=== PATIENT | female | born 1990 ===

== ENCOUNTER 2018-03-07 21:46 | Emergency (ER) | payer SELFPAY ==
[2018-03-07 22:25] VITALS: BMI 27.4
[2018-03-07 22:29] VITALS: RESP 18
[2018-03-07] MEDS ORDERED: Sodium Chloride 0.9% 1,000 ML IV STA ×2 (22:37→22:40)
--- NOTE | 2018-03-07 22:37 | ED PDOC ---
Arrival/HPI - General Chief Complaint: Female Genitourinary Time Seen by Provider: 03/07/18 22:30 Historian: Patient - History of Present Illness Narrative History of Present Illness (Text): 03/07/18 22:37 28 year old female, with no significant past medical history, presents to the emergency department complaining of fever and abdominal cramps. Patient states she was here yesterday and was diagnosed with a UTI. The pain did not go away with the 2 doses of Cipro. She states every time she takes medication it makes her feel sick and vomits it out. Patient denies any chills, chest pain, shortness of breath, diarrhea, urinary symptoms, back pain, neck pain, headache , dizziness, or any other complaints. Symptom Course: Unchanged Activities at Onset: Light Context: Home Past Medical History - Provider Review Nursing Documentation Reviewed: Yes - Renal Other/Comment: UTI - Psychiatric Hx Substance Use: No - Anesthesia Hx Anesthesia: No Family/Social History - Physician Review Nursing Documentation Reviewed: Yes Family/Social History: No Known Family HX Smoking Status: Never Smoked Hx Alcohol Use: No Hx Substance Use: No Allergies/Home Meds Allergies/Adverse Reactions: Allergies No Known Allergies Allergy (Verified 03/07/18 22:25) Home Medications: Home Meds Medication Instructions Recorded Confirmed No Known Home Med 03/07/18 03/07/18 Review of Systems - Physician Review All systems were reviewed & negative as marked: Yes - Review of Systems Constitutional: Fevers Respiratory: absent: SOB Cardiovascular: absent: Chest Pain Gastrointestinal: Abdominal Pain (cramping), Vomiting. absent: Diarrhea Genitourinary Female: absent: Dysuria, Frequency, Hematuria Musculoskeletal: absent: Back Pain, Neck Pain Physical Exam Vital Signs Reviewed: Yes Vital Signs Temp Pulse Resp BP Pulse Ox 03/07/18 22:26 98 F 94 H 18 127/77 100 Temperature: Afebrile Blood Pressure: Normal Pulse: Regular Respiratory Rate: Normal Appearance: Positive for: Well-Appearing, Non-Toxic, Comfortable Pain Distress: None Mental Status: Positive for: Alert and Oriented X 3 - Systems Exam Head: Present: Atraumatic, Normocephalic Pupils: Present: PERRL Extroacular Muscles: Present: EOMI Conjunctiva: Present: Normal Mouth: Present: Moist Mucous Membranes Neck: Present: Normal Range of Motion Respiratory/Chest: Present: Clear to Auscultation, Good Air Exchange. No: Respiratory Distress, Accessory Muscle Use Cardiovascular: Present: Regular Rate and Rhythm, Normal S1, S2. No: Murmurs Abdomen: No: Tenderness, Distention, Peritoneal Signs Back: Present: Normal Inspection Upper Extremity: Present: Normal Inspection. No: Cyanosis, Edema Lower Extremity: Present: Normal Inspection. No: Edema Neurological: Present: GCS=15, CN II-XII Intact, Speech Normal Skin: Present: Warm, Dry, Normal Color. No: Rashes Psychiatric: Present: Alert, Oriented x 3, Normal Insight, Normal Concentration Medical Decision Making ED Course and Treatment: 03/07/18 22:35 Impression: 28 year old female presents complaining of unresolved abdominal cramping and fever. Patient was diagnosed with UTI yesterday. Plan: -- Labs -- Motrin, IV Fluids, Tylenol -- Urine Culture -- Urine Test -- Urinalysis -- Reassess and disposition Progress Notes: 03/07/18 22:55 Patient states she was seen in [facility] last night. Asked patient if it is possible to retrieve paper work from [place] to review. Patient states she cannot and wants to leave because she can just take Tylenol at home. She will not sign the paper. Leaving Against Medical Advice (AMA): The patient is choosing to leave against medical advice. I have personally explained to the patient that choosing to do so may result in permanent bodily harm or . I have discussed at great length that without further evaluation and monitoring there may be unforeseen circumstances and/or deterioration causing permanent bodily harm or as a result of their choice. The patient is alert, oriented, and shows the mental capacity to make clear decisions regarding the patients health care at this time. The patient continues to wish to leave against medical advice. In light of the patients decision to leave against medical advice, follow-up has been arranged and the patient is aware of the importance to following up as instructed. The patient has been advised that they should return to the emergency room immediately if they change their mind at any time, or if their condition begins to change or worsen in any way. 03/07/18 23:06 Spoke with patient. Patient states I said all they needed in the Emergency room is Tylenol and is leaving because they can take it at home. I explained to them that that was not what I said. I explained they can take Tylenol for the fever and Motrin for the pain and explained that I did not say that is all they needed. I offered treatment and patient denies wanting. Patient will not sign against medical advice form and they are angry with me. - Lab Interpretations Lab Results: 03/07/18 22:45 03/07/18 22:45 Lab Results 03/07/18 22:45: Sodium 141, Potassium 3.9, Chloride 103, Carbon Dioxide 21, Anion Gap 20, BUN 6 L, Creatinine 0.6 L, Est GFR ( Amer) > 60, Est GFR ( Non-Af Amer) > 60, Random Glucose 114 H, Calcium 9.1, Total Bilirubin 0.7, AST 22, ALT 35, Alkaline Phosphatase 80, Total Protein 8.5 H, Albumin 4.4, Globulin 4.1, Albumin/Globulin Ratio 1.1 03/07/18 22:45: Urine Color Yellow, Urine Appearance Cloudy, Urine pH 7.5, Ur Specific [place] 1.025, Urine Protein 100 H, Urine Glucose (UA) Negative, Urine Ketones Trace H, Urine Blood Moderate H, Urine Nitrate Negative, Urine Bilirubin Negative, Urine Urobilinogen 1.0 H, Ur Leukocyte Esterase Large H, Urine RBC 2 - 5, Urine WBC 20 - 25, Ur Epithelial Cells 1 - 3, Urine Bacteria Mod 03/07/18 22:45: WBC 14.6 H, RBC 4.49, Hgb 13.6, Hct 38.9, MCV 86.6, MCH 30.3, MCHC 35.0, RDW 12.3, Plt Count 248, MPV 11.7 H, Gran % 78.7 H, Lymph % (Auto) 9.8 L, [place] % (Auto) 11.3 H, Eos % (Auto) 0.1 L, Baso % (Auto) 0.1, Gran # 11.46 H, Lymph # (Auto) 1.4, [place] # (Auto) 1.7 H, Eos # (Auto) 0.0, Baso # (Auto ) 0.02 - Medication Orders Current Medication Orders: Sodium Chloride (Sodium Chloride 0.9%) 1,000 mls @ 999 mls/hr IV .Q1H1M STA Stop: 03/07/18 23:37 Last Admin: 03/07/18 22:56 Dose: Not Given Non-Admin Reason: Patient Refused Sodium Chloride (Sodium Chloride 0.9%) 1,000 mls @ 999 mls/hr IV .Q1H1M STA Stop: 03/07/18 23:40 Last Admin: 03/07/18 22:52 Dose: Not Given Non-Admin Reason: Patient Refused Discontinued Medications Acetaminophen (Tylenol 325mg Tab) 975 mg PO STAT STA Stop: 03/07/18 22:38 Last Admin: 03/07/18 22:52 Dose: 975 mg MAR Pain/Vitals Document 03/07/18 22:52 (Rec: 03/07/18 22:52 [id number]) Pain Reassessment Is This A Pain ReAssessment? No Sleep Is patient sleeping during reassessment? No Presence of Pain Presence of Pain Yes Pain Scale Used Pain Scale Used Numeric Ibuprofen (Motrin Tab) 800 mg PO STAT STA Stop: 03/07/18 22:38 Ondansetron HCl (Zofran Odt) 8 mg PO STAT STA Stop: 03/07/18 22:37 Last Admin: 03/07/18 22:52 Dose: 8 mg - Scribe Statement The provider has reviewed the documentation as recorded by the Muriel Cruz Provider Scribe Attestation: All medical record entries made by the Muriel were at my direction and personally dictated by me. I have reviewed the chart and agree that the record accurately reflects my personal performance of the history, physical exam, medical decision making, and the department course for this patient. I have also personally directed, reviewed, and agree with the discharge instructions and disposition. Disposition/Present on Arrival - Present on Arrival Any Indicators Present on Arrival: Yes History of DVT/PE: No History of Uncontrolled Diabetes: No Urinary Catheter: No History of Decub. Ulcer: No History Surgical Site Infection Following: None - Disposition Have Diagnosis and Disposition been Completed?: Yes Diagnosis: Abdominal pain Disposition: AGAINST MEDICAL ADVICE Disposition Time: 23:07 Patient Plan: Other (Against Medical Advice Without Signing Form) Patient Problems: Current Active Problems Problem Status Onset Abdominal pain Acute Condition: FAIR Discharge Instructions (ExitCare): Acute Abdomen (Belly Pain), Adult (DC) Additional Instructions: I am sorry that I miscommunicated with you and that as a result you are angry with me. Please return to the ED if you change your mind and want diagnosis or treatment. Referrals: PCP,NO [Primary Care Provider] - Follow up with primary Forms: [email or web address] (Turkmen)
[2018-03-07 23:00] LABS: PH,URINE 7.5 (4.7-8.0); URINE APPEARANCE CLOUDY (CLEAR); URINE BILIRUBIN NEGATIVE (NEGATIVE); URINE BLOOD MODERATE (NEGATIVE); URINE COLOR YELLOW (YELLOW); URINE GLUCOSE (UA) NEGATIVE (NEGATIVE); URINE LEUKOCYTE ESTERASE LARGE Leu/uL (NEGATIVE); URINE PROTEIN 100 mg/dL (<30 mg/dL)
[2018-03-07 23:02] LABS: URINE BACTERIA MOD (NEG); URINE WBC 20 - 25 /hpf (0-6)
[2018-03-07 23:03] LABS: BASO # 0.02 K/mm3 (0.0-2.0); BASO % 0.1 % (0.0-3.0); EOS % 0.1 % (1.5-5.0); GRAN # 11.46 (1.4-6.5); GRAN % 78.7 % (50.0-68.0); HEMOGLOBIN 13.6 g/dL (12.0-16.0); LYMPH # 1.4 (1.2-3.4); LYMPH % 9.8 % (22.0-35.0); MEAN CELL VOLUME 86.6 fl (80.0-105.0); MEAN CORPUSCULAR HEMOGLOBIN 30.3 pg (25.0-35.0); MEAN PLATELET VOLUME 11.7 fl (7.0-11.0); MONO # 1.7 (0.1-0.6); MONO % 11.3 % (1.0-6.0); RBC 4.49 10^6/uL (3.5-6.1); RED CELL DISTRIBUTION WIDTH 12.3 % (11.5-14.5); WHITE BLOOD COUNT 14.6 10^3/ul (4.5-11.0)
[2018-03-07 23:11] LABS: ALB/GLOB RATIO 1.1 (1.1-1.8); ALBUMIN 4.4 g/dL (3.0-4.8); ALT/SGPT 35 U/L (7-56); AST/SGOT 22 U/L (14-36); BLOOD UREA NITROGEN 6 mg/dL (7-21); CALCIUM 9.1 mg/dL (8.4-10.5); GFR AFRICAN-AMERICAN > 60; GFR NON-AFRICAN AMERICAN > 60
[2018-03-07 23:24] VITALS: BP 121/86; PULSE 86; TEMP 98.6; O2SAT 98
== END 2018-03-07 23:15 | disposition left against medical advice (07) ==
LOC: ED 21:46
DX: R10.9 Unspecified abdominal pain (principal)